=== PATIENT | male | born 1965 | race Caucasian/White ===

== ENCOUNTER 2016-02-27 11:53 | Emergency (ER) | payer BC ==
[2016-02-27] MEDS ORDERED: DILAUDID 1 MG/ML AMP ONE (15:06)
== END 2016-02-27 17:01 | disposition other institution (70) ==
LOC: ER 11:53
CPT/HCPCS: 36415; 80053; 81001; 83690; 85025; 87077; 87088; 87186; 96372

== ENCOUNTER 2016-03-09 10:50 | Emergency (ER) | payer BC | END 2016-03-09 15:00 | disposition other institution (70) | LOC: ER 10:50 | DX: R55 Syncope and collapse (principal); D72.829 Elevated white blood cell count, unspecified; I10 Essential (primary) hypertension | CPT/HCPCS: 36415; 80053; 81003; 82947; 83605; 84145; 85025; 85652; 87040; 93005; 96360; 96361 ==